=== PATIENT | female | born 1935 | race Caucasian/White ===

== ENCOUNTER → 2017-07-27 | Outpatient (CLI) | payer MEDICARE ==
[~2017-07-27] VITALS: Ht 162.6 cm; Wt 60.6 kg
[~2017-07-27] MED LIST: ALLOPURINOL300 MG PO; ASPIR-LOW81 MG PO; CALAN SR240 MG PO; CENTRUM SILVER1 TA1 PO; K-DUR 10 MEQ T10 MEQ PO; LEVAQUIN 5500 MG/TAB PO; MAXZIDE-25MG TA1 TAB PO; MICRO-K8 MEQ PO; PHENERGAN 25 TA25 MG PO; PRILOSEC 20MG20 MG PO; TRIAMTERENE/HCT1 CAP PO; VERELAN240 MG PO; VICODIN PO
[2017-07-27 09:42] VITALS: BP 157/83; PULSE 86
[2017-07-27 11:19] VITALS: BP 156/77; PULSE 83
== END ==
LOC: COL.RAD 09:05
DX: R22.1 Localized swelling, mass and lump, neck (principal); Z85.72 Personal history of non-Hodgkin lymphomas